=== PATIENT | female | born 1975 | race Caucasian/White ===

== ENCOUNTER → 2019-09-07 | Outpatient (CLI) | payer BC ==
[~2019-09-07] MED LIST: FLEXERIL 1010 MG/TAB PO; ZYRTEC 10MG10 MG PO
== END ==
LOC: MC.RAD 08:45
DX: Z12.31 Encounter for screening mammogram for malignant neoplasm of breast (principal); N63.31 Unspecified lump in axillary tail of the right breast

== ENCOUNTER → 2019-09-13 | Outpatient (CLI) | payer BC | LOC: MC.RAD 08:15 | DX: N63.31 Unspecified lump in axillary tail of the right breast (principal) ==

== ENCOUNTER → 2020-10-03 | Outpatient (CLI) | payer BC | LOC: MC.RAD 11:15 | DX: Z12.31 Encounter for screening mammogram for malignant neoplasm of breast (principal) ==

== ENCOUNTER → 2023-06-11 | Outpatient (CLI) | payer BC | LOC: CANPRECLI → MC.RAD 02-02 14:30 | DX: Z12.31 Encounter for screening mammogram for malignant neoplasm of breast (principal) ==

== ENCOUNTER 2024-03-25 14:13 | Emergency (ER) | payer BC ==
[~2024-03-25] VITALS: Ht 160 cm; Wt 61.4 kg
[2024-03-25 14:18] VITALS: TEMP 98.3
[2024-03-25 14:51] LABS: BASO # 0.2 K/mm3 (0.0-0.2); BASO % 1.1 % (0.0-2.0); EOS # 0.1 K/mm3 (0.0-0.7); EOS % 0.8 % (0.0-4.0); GRAN # 10.6 K/mm3 (1.4-6.5); GRAN % 79.5 % (42.2-75.2); HEMATOCRIT 41.7 % (37.0-47.0); HEMOGLOBIN 13.6 g/dl (12.5-16.0); LYMPH # 1.6 K/mm3 (1.2-3.4); LYMPH % 12.2 % (20.0-51.0); MEAN CELL VOLUME 89 fl (80.0-100.0); MEAN CORPUSCULAR HEMOGLOBIN 29 pg (27-31); MEAN CORPUSCULAR HGB CONC 33 g/dl (33.0-37.0); MEAN PLATELET VOLUME 10.7 fl (7.4-10.4); MONO # 0.8 K/mm3 (0.1-0.6); PLATELET COUNT 287 K/mm3 (130-400); REDCELL DISTRIBUTION WIDTH-CV 13.8 % (11.5-14.5)
[2024-03-25 14:56] LABS: COLLECTION METHOD CATHETER
[2024-03-25 15:09] LABS: ALBUMIN 4.4 g/dL (3.5-5.0); BILIRUBIN,TOTAL 0.4 mg/dL (0.2-1.2); CALCIUM 9.6 mg/dL (8.4-10.2); CREATININE, serum 0.79 mg/dL (0.57-1.11); POTASSIUM 3.7 mEq/L (3.5-4.5); TOTAL PROTEIN 7.7 g/dl (6.2-8.1)
[2024-03-25 15:10] LABS: PH 5.5 (5.0-8.5); URINE APPEARANCE CLEAR (CLEAR/HAZY); URINE BLOOD NEGATIVE (NEGATIVE); URINE COLOR YELLOW (YELLOW); URINE GLUCOSE NEGATIVE (NEGATIVE); URINE KETONE NEGATIVE (NEGATIVE); URINE NITRATE NEGATIVE (NEGATIVE); URINE PROTEIN(semi-quant) NEGATIVE (NEGATIVE); URINE UROBILINOGEN 0.2 E.U/dL (0.2-1.0)
[2024-03-25] MEDS ORDERED: Iohexol 300 - 100 ML VIAL IV ONE (15:11)
[2024-03-25] MEDS ORDERED: NS 100 ML IV ONE (15:11)
[2024-03-25 16:04] VITALS: BP 119/88; PULSE 69
== END 2024-03-25 16:04 | disposition home or self-care (01) ==
LOC: COL.ER 14:13
PROVIDERS: Physician Assistant
DX: R33.9 Retention of urine, unspecified (principal); D25.9 Leiomyoma of uterus, unspecified
CPT/HCPCS: A4314; Q9967

== ENCOUNTER 2024-05-18 10:00 | Day surgery (SDC) | payer BC ==
[~2024-05-18] VITALS: Ht 162.6 cm; Wt 61.4 kg
[2024-05-18] VITALS (10 sets, daily range): BP systolic 99–123; BP diastolic 46–66; PULSE 57–97; TEMP 98–98.9
[~2024-05-18 10:00] MED LIST changes: +LR 1,000 ML IV SCH
[2024-05-18] MEDS ORDERED: SYNTHROID0.075 MG/T PO (10:25)
[2024-05-18] MEDS ORDERED: SINGULAIR 110 MG/TAB PO (10:26)
[2024-05-18] MEDS ORDERED: dexAMETHasone 10 MG/ML VIAL ONE (11:38)
[2024-05-18] MEDS ORDERED: fentaNYL 50 MCG/ML 5 ML VIAL ONE ×2 (11:38→11:39)
[2024-05-18] MEDS ORDERED: Ondansetron 4 MG/2 ML VIAL ONE (11:38)
[2024-05-18] MEDS ORDERED: Ketorolac 60 MG/2 ML VIAL IM ONE (11:38)
[2024-05-18] MEDS ORDERED: Rocuronium 50 MG/5 ML Multi-Dose VIAL ONE (11:43)
[2024-05-18] MEDS ORDERED: droPERidol 2.5 MG/ML 2 ML VIAL ONE (11:44)
[2024-05-18] MEDS ORDERED: Scopolamine 1 MG Delivered 3-Day PATCH TD SCH (11:45)
[2024-05-18] MEDS ORDERED: Tranexamic Acid 1,000 MG/10 ML VIAL ONE (11:56)
[2024-05-18] MEDS ORDERED: Topical Skin Adhesive 1 EACH (1 ML) TOP ONE (12:04)
[2024-05-18] MEDS ORDERED: Lidocaine 2% (20 MG/ML) 20 ML UROJET UR ONE (12:04)
[2024-05-18] MEDS ORDERED: fentaNYL 50 MCG/ML 2 ML VIAL ONE (12:42)
[2024-05-18] MEDS ORDERED: LR 1,000 ML IV ONE (13:12)
[2024-05-18] MEDS ORDERED: fentaNYL 50 MCG/ML 1 ML SYRINGE/VIAL [PACU/SDC ONLY] IV PRN (13:15)
[2024-05-18] MEDS ORDERED: Meperidine 50 MG/ML 1 ML VIAL IV PRN (13:15)
[2024-05-18] MEDS ORDERED: HYDROmorphone 1 MG/1 ML SYRINGE [PACU/SDC ONLY] IV PRN (13:15)
[2024-05-18] MEDS ORDERED: Naloxone 0.4 MG/ML VIAL IV PRN (14:30)
[2024-05-18] MEDS ORDERED: LR 1,000 ML IV SCH (14:30)
[2024-05-18] MEDS ORDERED: Acetaminophen 500 MG TAB PO PRN (14:30)
[2024-05-18] MEDS ORDERED: Ondansetron 4 MG/2 ML VIAL IV PRN (14:30)
[2024-05-18] MEDS ORDERED: oxyCODONE 5 MG TAB PO PRN (14:30)
--- NOTE | 2024-05-18 14:45 | NUR ---
PT TO UNIT, RECEIVED REPORT FOR SENIOR SALES DIRECTOR. PT STABLE. NASAL CANULA DC'D PER DR.WEBER QUINTANA. PT BELONGINGS PLACED ON BENCH IN ROOM. VS STABLE. SUPPORT PERSON WAITING FOR PT TO BE SETTLED .
--- NOTE | 2024-05-18 15:37 | NUR ---
PER DR. POWELL, SHIELDS CATHETER CAN BE REMOVED 05/19/2024 AT 0700.
[2024-05-18] MEDS ORDERED: Ibuprofen 800 MG TAB PO SCH (20:21)
--- NOTE | 2024-05-18 20:45 | NUR ---
1899- REPORT RECIEVED FROM Uriel COREY RN. THIS RN TO PATIENT'S ROOM TO REVIEW PLAN OF CARE AND TO ASSESS PATIENT. PATIENT ALERT AND ORIENTED. 4 ABOMINAL INCISION SITES NOTED. INCISION SITES C/D/I WITH DRESSINGS ON. PATIENT'S SHIELDS ASSESSED. 10 ML OF URINE NOTED IN SHIELDS BAG. SHIELDS TUBING ASSESSED AND ADJUSTED. ADDITONAL URINE DRAINED INTO SHIELDS BAG. 150 ML NOW IN SHIELDS BAG. PATIENT ENCOURAGED TO DRINKS FLUIDS. PATIENT VERBALIZED UNDERSTANDING. 2029- THIS RN RETURNED TO PATIENT'S ROOM TO RE-ASSESS PATIENT AND TO OBTAIN PATIENT VITAL SIGNS. 150 ML NOTED IN SHIELDS BAG, NO ADDITIONAL URINE DRAINED INTO BAG FROM 1899. SHIELDS TUBING ASSESSED, NO ADDITIONAL URINE NOTED IN SHIELDS TUBING. PATIENT VITAL SIGNS WNL. LACTATED RINGERS IV FLUIDS HUNG AND ADMINISTERED TO PATIENT VIA IV PUMP PER PHYSICIAN ORDERS AND EMAR. PATIENT EDUCATED ON POC AND VERBALIZES UNDERSTANDING.
[2024-05-18] MEDS ORDERED: Docusate Sodium 100 MG CAP PO SCH (21:00)
--- NOTE | 2024-05-18 21:30 | NUR ---
ASSUMED CARE. PT RESTING COMFORTABLY. DENIES PAIN OR NEEDS AT THIS TIME.
--- NOTE | 2024-05-18 21:30 | NUR ---
REPORT GIVEN TO Wagner MCFADDEN RN.
--- NOTE | 2024-05-19 01:45 | NUR ---
PT SLEEPING. BREATHING EVEN AND UNLABORED
[2024-05-19 04:15] VITALS: BP 111/66; PULSE 65; TEMP 98.2
--- NOTE | 2024-05-19 04:35 | NUR ---
PT GIVEN SCHEDULED IBUPROFEN. STATES ONLY PAIN IS IN HER RT SHOULDER AND IS SHARP AND MORE PERSISTANT THAN BEFORE. SIMETHICONE GIVEN REQUESTED.
[2024-05-19 07:25] VITALS: BP 117/83; PULSE 73; TEMP 98.1
--- NOTE | 2024-05-19 17:43 | NUR ---
PATIENT AMBULATORY FROM UNIT WITH KARLIE MAYFIELD. PATIENT DISCHARGE IN [place] CONDITION.
== END 2024-05-19 17:43 | disposition home or self-care (01) ==
LOC: SDCO 10:00
DX: D25.9 Leiomyoma of uterus, unspecified (principal); R10.2 Pelvic and perineal pain
CPT/HCPCS: A4314; J0690; J1100; J1790; J1885; J2405; J3010; J7120